=== PATIENT | female | born 1945 | race Caucasian/White ===

== ENCOUNTER 2016-10-28 07:02 | Observation (INO) | payer MEDICARE ==
[~2016-10-28] VITALS: Ht 162.6 cm; Wt 93.7 kg
[~2016-10-28 07:02] MED LIST: ASPI81TA11 PO; BACITRACIN TOP OINT 15 GM TUBE ONE; BYST5TAB2 PO; LEVO25TA4 PO; LIDOCAINE 1%/EPINEPHrine 1:100,000 SOLN 30 ML VIAL ONE; META48.53 PO; MULTTAB67 PO; OXYC1TAB63 PO; OXYMETAZOLINE HCL 0.05% 15 ML NASAL SPRAY ONE; PANT20 PO; TEMA15CA PO
[2016-10-28] MEDS ORDERED: NEXI40CA PO (07:47)
[2016-10-28] MEDS ORDERED: SYNT88TA PO (07:47)
[2016-10-28] MEDS ORDERED: INUL6.5C PO (07:47)
[2016-10-28] MEDS ORDERED: TRAM50TA PO (07:47)
[2016-10-28] MEDS ORDERED: REGL10TA5 PO (07:47)
[2016-10-28 07:49] VITALS: BP 148/74; PULSE 60; RESP 18; TEMP 98.2; O2SAT 97
[2016-10-28] MEDS ORDERED: LACTATED RINGER'S 1000 ML INJ 1,000 ML ONE (08:42)
[2016-10-28] MEDS ORDERED: AMPICILLIN-SULBACTAM INJ 3 GM VIAL ONE (08:42)
[2016-10-28] MEDS ORDERED: SODIUM CHLORIDE 0.9% INJ 100 ML ONE (08:42)
[2016-10-28] MEDS ORDERED: ACETAMINOPHEN 1000 MG/100 ML VIAL IV ONE (08:51)
[2016-10-28] MEDS ORDERED: DEXAMETHASONE SOD PHOS 4 MG/ML VIAL ONE (08:51)
[2016-10-28] MEDS ORDERED: MIDAZOLAM HCL 2 MG/2 ML VIAL ONE (08:57)
[2016-10-28] MEDS ORDERED: SUGAMMADEX SODIUM 200 MG/2 ML VIAL IV PUSH ONE ×2 (09:06)
[2016-10-28] MEDS ORDERED: fentaNYL CITRATE 250 MCG/5 ML AMP ONE ×2 (09:06→10:23)
[2016-10-28] MEDS ORDERED: DO NOT ADM ANY ANTICOAGULANT DRUGS PRN (10:06)
[2016-10-28] MEDS ORDERED: MORPHINE SULFATE 4 MG/ML INJ ONE (10:46)
[2016-10-28 12:00] VITALS: BP 158/82; PULSE 60; RESP 18; TEMP 96.7; O2SAT 98
[2016-10-28] MEDS ORDERED: PROPOFOL 200 MG/20 ML AMP IV ONE (12:00)
[2016-10-28] MEDS ORDERED: ONDANSETRON HCL 4 MG/2 ML VIAL IV PUSH ONE (12:00)
[2016-10-28] MEDS ORDERED: ONDANSETRON HCL 4 MG/2 ML VIAL IV PUSH PRN (12:30)
[2016-10-28] MEDS: LACTATED RINGER'S 1000 ML INJ 1,000 ML IV SCH (12:30)
[2016-10-28 13:40] VITALS: O2SAT 94
[2016-10-28] MEDS: AMPICILLIN/SULBAC 1500 MG/NS 100 ML IV SCH ×4 (15:38→22:53)
[2016-10-28] MEDS: ACETAMINOPHEN/HYDROcodone 325 MG/5 MG TAB PO PRN ×2 (15:41→21:03)
[2016-10-28 16:00] VITALS: BP 150/85; PULSE 64; RESP 17; TEMP 96.7; O2SAT 94
--- NOTE | 2016-10-28 19:08 | MP ---
cc: LORRAINE HIGGINS M.D. DATE OF SURGERY 10/28/[address] Nick Higgins PREOPERATIVE DIAGNOSIS 1. Epistaxis. 2. Nasal airway obstruction. 3. Nasal septal deviation 4. Hypertrophy of inferior turbinates. POSTOPERATIVE DIAGNOSIS 1. Epistaxis. 2. Nasal airway obstruction. 3. Nasal septal deviation 4. Hypertrophy of inferior turbinates. OPERATION PERFORMED 1. Open repair of nasal septal fracture. 2. Bilateral submucosal resection of inferior turbinates INDICATIONS Documented in the history and physical. DESCRIPTION OF OPERATION The patient is taken to OR #2 and placed in the supine position. Following induction of general anesthesia and intubation, the nose was packed bilaterally with cotton pledgets saturated in 0.05% Oxymetazoline. The nasal septal mucosa and inferior turbinates were injected with a total of 8 mL of 1% Xylocaine with epinephrine 1:100,000. She was then prepped and draped for surgery. The packing was removed and a hemitransfixion incision was made in the left nasal vestibule. Through this incision, the mucosa of septum was elevated bilaterally approximately 1.5 cm. This exposed the anterior end of the quadrangular cartilage which was very thick, twisted and irregular with evidence of old septal fracture with numerous comminuted fracture segments. These were removed in a piecemeal fashion using a [place] elevator and Conner [place] forceps. A cumulative area of 2 x 2 cm was removed preserving 1.5 cm dorsal and caudal cartilaginous struts. When this was completed, the mucosa was elevated from the bony septum and the maxillary crest and these were removed with Prieto Peña forceps on the bony septum and the maxillary crest was removed using a 6-mm [place] chisel. Incision was then closed with a running suture of 4-0 chromic and the mucosal layers of septum were approximated to each other with a quilting stitch of 4-0 plain gut. Inferior turbinates were then fractured out medially and stab incisions made along their inferior surfaces. Through these incisions, the submucosal soft tissue is reduced approximately 25% preserving the conchal bone. The incision was then cauterized using a suction Bovie at 35 noel and the remnants of the inferior turbinates were then relateralized to the lateral nasal wall. The nose was packed with Merocel tampons coated in bacitracin ointment and the procedure was terminated. The patient was reversed from anesthesia and taken to recovery in good condition. There were no complications. Blood loss was 100 mL. MD JEFRY Fulton/ /9:57 AM /7:01 PM
[2016-10-28 20:00] VITALS: BP 129/71; PULSE 62; RESP 20; TEMP 96; O2SAT 94
[2016-10-28 22:20] VITALS: O2SAT 97; O2SAT 98
[2016-10-29] VITALS: BP 140/66; PULSE 57; RESP 20; TEMP 96.8; O2SAT 96
[2016-10-29] MEDS: LACTATED RINGER'S 1000 ML INJ 1,000 ML IV SCH (01:00)
[2016-10-29] MEDS: ACETAMINOPHEN/HYDROcodone 325 MG/5 MG TAB PO PRN ×2 (01:48→08:38)
[2016-10-29] MEDS: AMPICILLIN/SULBAC 1500 MG/NS 100 ML IV SCH ×2 (06:53)
[2016-10-29 08:00] VITALS: BP 128/71; PULSE 57; RESP 18; TEMP 98.3; O2SAT 97
--- NOTE | 2016-10-29 09:46 | EKG ---
Date Performed: 10/28/2016 Time Performed: 07:44:50 PTAGE: 71 years EKG: Sinus rhythm . rSr'(V1) - probable normal variant Low QRS voltages in precordial leads Borderline ECG NO PREVIOUS TRACING DOCTOR: Sam London Interpretating Date/Time 10/29/2016 09:44:34
[2016-10-29 10:02] VITALS: RESP 18
== END 2016-10-29 12:55 | disposition home or self-care (01) ==
LOC: PHSDC 07:02 → PH3A 11:33
PROVIDERS: ADMIT Otolaryngology; ATTEND Otolaryngology
DX: J34.2 Deviated nasal septum (principal); J34.3 Hypertrophy of nasal turbinates; R04.0 Epistaxis; Z87.891 Personal history of nicotine dependence; Z88.2 Allergy status to sulfonamides
CPT/HCPCS: 30140; 30520; 93005; 94762; J0131; J0295; J1100; J2250; J2270; J2405; J3010; J7120; G0378